=== PATIENT | female | born 1970 | race Asian ===

== ENCOUNTER 2017-03-28 11:18 | Emergency (ER) | payer OTHER ==
[~2017-03-28] VITALS: Ht 152.4 cm; Wt 67.2 kg
[2017-03-28 11:20] VITALS: BP 120/79
[2017-03-28 12:29] LABS: RAPID INFLUENZA A Negative (Negative); RAPID INFLUENZA B Negative (Negative)
== END 2017-03-28 12:56 | disposition home or self-care (01) ==
LOC: ED 11:57
DX: J00 Acute nasopharyngitis [common cold] (principal)
CPT/HCPCS: 71020; 87400; 99285